=== PATIENT | female | born 1995 | race Hispanic/Latino ===

== ENCOUNTER 2016-09-16 21:02 | Emergency (ER) | payer OTHER ==
[2016-09-16 21:35] VITALS: BP 121/57; PULSE 76; RESP 16; TEMP 97.1; O2SAT 98
--- NOTE | 2016-09-16 22:33 | ED PDOC ---
HPI: General Adult Time Seen by Provider: 09/16/16 21:45 Chief Complaint (Nursing): Abnormal Skin Integrity History Per: Patient Additional Complaint(s): Pt. states yesterday she was outside at a constitution party and came in contact with nuts that was in close vicinity to her. Pt. states that she immediately began to feel itchy and today symptoms persisted and when she scratched her leg she developed a rash. Reports similar rash last week which resolved after 1 hour. Reports a long hx of allergies for which she sees her analyst geochemical prospecting for ever since she was 3 y/o. Pt. states she has no hx of previous anaphylactic reactions. Denies fever, SOB, throat swelling, chest pain. Of note, pt. does have an epipen but has not used it. Past Medical History Reviewed: Historical Data, Nursing Documentation, Vital Signs Vital Signs: Last Vital Signs Temp 97.1 F L 09/16/16 21:30 Pulse 76 09/16/16 21:30 Resp 16 09/16/16 21:30 BP 121/57 L 09/16/16 21:30 Pulse Ox 98 09/16/16 21:30 - Family History Family History: States: No Known Family Hx - Home Medications Home Medications: Ambulatory Orders Medication Instructions Recorded Famotidine [Pepcid] 20 mg PO DAILY PRN #15 tab 09/16/16 Hydroxyzine HCl 1 - 2 tab PO Q6 PRN #30 tablet 09/16/16 predniSONE [Prednisone] 2 tab PO DAILY #8 tab 09/16/16 - Allergies Allergies/Adverse Reactions: Allergies Allergy/AdvReac Type Severity Reaction Status Date / Time peanut Allergy ANAPHYLAXIS Verified 09/16/16 21:35 shellfish derived Allergy ANAPHYLAXIS Verified 09/16/16 21:35 tree nut Allergy ANAPHYLAXIS Verified 09/16/16 21:35 Review of Systems ROS Statement: Except As Marked, All Systems Reviewed And Found Negative Skin: Positive for: Rash Physical Exam - Physical Exam Appears: Positive for: Well, Non-toxic, No Acute Distress Skin: Positive for: Normal Color, Warm, Rash (multiple large erythematous linear urticarial rash on legs with lanching without vesicles or tenderness) ENT: Positive for: Normal ENT Inspection. Negative for: Pharyngeal Erythema, Tonsillar Exudate, Tonsillar Swelling Cardiovascular/Chest: Positive for: Regular Rate, Rhythm Respiratory: Positive for: Normal Breath Sounds. Negative for: Accessory Muscle Use, Stridor, Wheezing, Respiratory Distress - ECG O2 Sat by Pulse Oximetry: 98 - Progress ED Course And Treament: Pt. states she took Benadryl 50mg just [employer] and itching has improved. Prednisone 40mg PO, pepcid 20mg PO given. Instructed to f/u with her analyst geochemical prospecting and to take epipen if SOB or throat swelling develops. Disposition - Clinical Impression Clinical Impression: Dermatographic urticaria - Patient ED Disposition Is Patient to be Admitted: No - Disposition Disposition: Routine/Home Disposition Time: 22:35 Condition: STABLE Additional Instructions: FOLLOW UP WITH YOUR FIELD [employer] SENIOR SERGEANT TOMORROW WITHOUT FAIL Prescriptions: Famotidine [Pepcid] 20 mg PO DAILY PRN #15 tab PRN Reason: Itching / Pruritus Hydroxyzine HCl 1 - 2 tab PO Q6 PRN #30 tablet PRN Reason: Itching / Pruritus predniSONE [Prednisone] 2 tab PO DAILY #8 tab Instructions: Urticaria (ED) Print Language: [id number]
== END 2016-09-16 23:20 | disposition home or self-care (01) ==
LOC: H.ER 21:02
DX: R21 Rash and other nonspecific skin eruption (principal); L50.3 Dermatographic urticaria